=== PATIENT | female | born 1955 | race Caucasian/White ===

== ENCOUNTER 2017-04-21 11:49 | Emergency (ER) | payer OTHER | END 2017-04-21 12:41 | disposition left against medical advice (07) | LOC: NED 11:49 | DX: Z53.21 Procedure and treatment not carried out due to patient leaving prior to being seen by health care provider (principal) | CPT/HCPCS: 99281 ==

== ENCOUNTER → 2017-04-21 | Outpatient (CLI) | payer OTHER ==
[~2017-04-21] MED LIST: ATEN-102 PO; HYDR-2768 PO
[2017-04-21 10:12] LABS: AUTOMATED NEUTROPHIL # 1.8 TH/MM3 (1.8-7.7); BASOPHIL # 0.1 TH/MM3 (0-0.2); BASOPHIL % 1.3 % (0.0-2.0); EOSINOPHIL # 0.2 TH/MM3 (0-0.4); EOSINOPHIL % 4.3 % (0.0-4.0); HEMATOCRIT 38.7 % (35.0-46.0); HEMOGLOBIN 13.6 GM/DL (11.6-15.3); LYMPH % 53.3 % (9.0-44.0); MEAN CELL VOLUME 104.8 FL (80.0-100.0); MEAN CORPUSCULAR HGB CONC 35.3 % (32.0-36.0); MEAN PLATELET VOLUME 6.7 FL (7.0-11.0); MONO % 9.1 % (0.0-8.0); MONOCYTE # 0.5 TH/MM3 (0-0.9); PLATELET COUNT 277 TH/MM3 (150-450); RED BLOOD COUNT 3.69 MIL/MM3 (4.00-5.30); RED CELL DISTRIBUTION WIDTH 14.9 % (11.6-17.2); WHITE BLOOD COUNT 5.5 TH/MM3 (4.0-11.0)
[2017-04-21 10:44] LABS: ALBUMIN 3.5 GM/DL (3.4-5.0); ALKALINE PHOSPHATASE 91 U/L (45-117); ALT (GPT) 25 U/L (10-53); AST (GOT) 54 U/L (15-37); BICARBONATE 27.9 MEQ/L (21.0-32.0); BLOOD UREA NITROGEN 13 MG/DL (7-18); CALCIUM 8.3 MG/DL (8.5-10.1); CHLORIDE 92 MEQ/L (98-107); CREATININE 1.43 MG/DL (0.50-1.00); DIRECT BILIRUBIN ADULT LESS THAN 0.1 MG/DL (0.0-0.2); GLOMERULAR FILTRATION RATE 37 ML/MIN (>89); GLUCOSE,FASTING 125 MG/DL (74-99); SODIUM (NA) 133 MEQ/L (136-145); TOTAL BILIRUBIN ADULT 0.4 MG/DL (0.2-1.0); TOTAL PROTEIN 8.7 GM/DL (6.4-8.2)
[2017-04-21 13:01] LABS: HEPATITIS A AB IGM NEGATIVE (NEGATIVE); HEPATITIS B CORE AB IGM NEGATIVE (NEGATIVE); HEPATITIS B SURFACE ANTIGEN NEGATIVE (NEGATIVE); HEPATITIS C AB IgG REACTIVE (NEGATIVE)
== END ==
LOC: CLAB 09:41
DX: N08 Glomerular disorders in diseases classified elsewhere (principal)
CPT/HCPCS: 36415; 80053; 80074; 82248; 85025

== ENCOUNTER → 2017-04-22 | Outpatient (CLI) | payer OTHER ==
[2017-04-22 10:54] LABS: ALBUMIN 3.6 GM/DL (3.4-5.0); AST (GOT) 46 U/L (15-37); BICARBONATE 29.1 MEQ/L (21.0-32.0); BLOOD UREA NITROGEN 21 MG/DL (7-18); CALCIUM 8.4 MG/DL (8.5-10.1); CHLORIDE 95 MEQ/L (98-107); CREATININE 1.54 MG/DL (0.50-1.00); GLOMERULAR FILTRATION RATE 34 ML/MIN (>89); GLUCOSE,FASTING 114 MG/DL (74-99); SODIUM (NA) 134 MEQ/L (136-145)
[2017-04-22 10:55] LABS: ALT (GPT) 26 U/L (10-53)
[2017-04-22 10:57] LABS: ALKALINE PHOSPHATASE 103 U/L (45-117); TOTAL BILIRUBIN ADULT 0.4 MG/DL (0.2-1.0); TOTAL PROTEIN 8.6 GM/DL (6.4-8.2)
== END ==
LOC: CLAB 10:07
DX: N08 Glomerular disorders in diseases classified elsewhere (principal)
CPT/HCPCS: 36415; 80053

== ENCOUNTER → 2017-05-16 | Outpatient (CLI) | payer OTHER ==
[2017-05-16 11:33] LABS: ALT (GPT) 30 U/L (10-53)
[2017-05-16 11:35] LABS: ALKALINE PHOSPHATASE 88 U/L (45-117); TOTAL PROTEIN 8.1 GM/DL (6.4-8.2)
[2017-05-16 11:37] LABS: ALBUMIN 3.5 GM/DL (3.4-5.0); BICARBONATE 24.9 MEQ/L (21.0-32.0); BLOOD UREA NITROGEN 24 MG/DL (7-18); CALCIUM 9.8 MG/DL (8.5-10.1); CHLORIDE 100 MEQ/L (98-107); CREATININE 1.61 MG/DL (0.50-1.00); GLOMERULAR FILTRATION RATE 33 ML/MIN (>89); GLUCOSE,FASTING 102 MG/DL (74-99); SODIUM (NA) 136 MEQ/L (136-145)
[2017-05-16 11:39] LABS: AST (GOT) 44 U/L (15-37)
== END ==
LOC: CLAB 10:26
DX: E87.6 Hypokalemia (principal); Z20.5 Contact with and (suspected) exposure to viral hepatitis
CPT/HCPCS: 36415; 80053; 87522

== ENCOUNTER → 2017-05-20 | Outpatient (CLI) | payer OTHER ==
--- NOTE | 2017-05-20 10:10 | RADRPT ---
EXAM DATE/TIME: 05/20/2017 09:26 [place] COMPARISON: No previous studies available for comparison. INDICATIONS : Increased lab values. MEDICAL HISTORY : Hypertension. Hypercholesterolemia. SURGICAL HISTORY : None. ENCOUNTER: Initial ACUITY: 1 day PAIN SCORE: 0/10 LOCATION: Abdomen. MEASUREMENTS: LIVER: 16.0 cm length COMMON DUCT: 4 mm RIGHT KIDNEY: 9.0 x 4.6 x 3.9 cm SPLEEN: 8.8 cm length FINDINGS: LIVER: Diffusely increased hepatic echogenicity with borderline hepatomegaly. No evidence for volume loss or focal hepatic mass or intrahepatic ductal dilatation. The portal vein is patent with hepatopedal radha w. COMMON DUCT: No intraluminal mass or stone visualized. GALLBLADDER: Contains no stones, demonstrates no wall thickening or pericholecystic fluid. PANCREAS: The visualized portions are within normal limits. RIGHT KIDNEY: No hydronephrosis, stone or mass. SPLEEN: No focal lesion. CONCLUSION: 1. Diffuse increased hepatic attenuation with borderline hepatomegaly consistent with hepatic steatos is versus medical liver disease. Fabrizio Austin MD on May 20, 2017 at 10:06 Board Certified Radiologist. This report was verified electronically.
== END ==
LOC: HRAD 09:00
DX: R94.5 Abnormal results of liver function studies (principal)
CPT/HCPCS: 76705

== ENCOUNTER → 2017-07-04 | Outpatient (CLI) | DX: E87.6 Hypokalemia (principal); Z20.5 Contact with and (suspected) exposure to viral hepatitis ==

== ENCOUNTER 2017-07-20 09:43 | Emergency (ER) | payer OTHER ==
[~2017-07-20] VITALS: Ht 162.6 cm; Wt 60.0 kg
[2017-07-20 09:45] VITALS: BP 134/65; PULSE 75; RESP 16; TEMP 98.7; O2SAT 99
[2017-07-20] MEDS ORDERED: LOVA10TA PO (10:02)
[2017-07-20] MEDS ORDERED: HYDR25TA5 PO (10:02)
[2017-07-20] MEDS ORDERED: KLOR10TA PO (10:02)
[2017-07-20] MEDS ORDERED: LEVO25TA4 PO (10:02)
[2017-07-20] MEDS ORDERED: ATEN50TA PO (10:02)
[2017-07-20 10:41] VITALS: RESP 16; TEMP 97.8; O2SAT 98
[2017-07-20] MEDS ORDERED: SODIUM CHLORIDE 0.9% FLUSH 10 ML FLUSH IV FLUSH PRN (10:45)
[2017-07-20] MEDS ORDERED: IOHEXOL 350 MG/ML 10 ML VIAL (for RAD DIAG) IVCONTRAST ONE (11:17)
--- NOTE | 2017-07-20 11:32 | RADRPT ---
EXAM DATE: 07/20/2017 11:21 AM EDT AGE/SEX: 61 years / Female INDICATIONS: Pelvic pain with rectal bleeding. CLINICAL DATA: This is the patient's initial encounter. Patient reports that signs and symptoms have been present for 1 day and indicates a pain score of 4/10. MEDICAL/SURGICAL HISTORY: Cardiovascular disease. Hypertension. None. ORAL CONTRAST: No oral contrast ingested. RADIATION DOSE: 4.61 CTDI (mGy) COMPARISON: No prior [place] exams available for comparison. TECHNIQUE: Multiple contiguous axial images were obtained through the abdomen and pelvis following b olus infusion of 94 ml Omnipaque 350 (iohexol) nonionic water-soluble contrast as a single exam dos e. No oral contrast ingested. Using automated exposure control and adjustment of the mA and/or kV ac cording to patient size, the radiation dose was kept as low as reasonably achievable to obtain optima l diagnostic quality images. FINDINGS: Lower Lungs: The visualized lower lungs are clear. Liver: The liver has a homogeneous density without space-occupying lesion. There is no dilation of th e biliary tree. Spleen: Homogeneous density without enlargement. Pancreas: Unremarkable without mass or calcification. Kidneys: Normal in size and shape. No evidence of mass or hydronephrosis. Adrenal Glands: Unremarkable. Aorta: There is scattered atherosclerosis identified throughout the aorta without significant lumin al narrowing until the level of the common artery bifurcation where there is extensive atherosclerosi s and significant luminal narrowing identified throughout the internal and external iliac arteries. N o evidence of aneurysm. Bowel/Mesentery: There is circumferential bowel wall thickening identified within the rectum without evidence of mass or adjacent perimesenteric inflammatory change. The remainder of the colon is lavelle l in appearance without evidence of wall thickening. Small bowel is unremarkable. Abdominal Wall: Intact. Retroperitoneum: No evidence of adenopathy in the retrocrural, para-aortic, or deep pelvic regions. Bladder: Contours are smooth. Reproductive Organs: No abnormal masses or calcifications seen. Inguinal: The inguinal region is unremarkable without evidence of adenopathy. Bony Structures: Severe degenerative disc changes identified throughout the lumbar spine. CONCLUSION: 1. Extensive atherosclerosis identified within the bilateral common internal and external iliac lamar ubaldo with luminal narrowing. No evidence of aneurysm. 2. Circumferential wall thickening identified within the region of the rectum without evidence of ad jacent mesenteric fat stranding adenopathy or focal mass. This may reflect an infectious colitis or p ossible vascular etiology given the extensive atherosclerosis seen within the pelvis. Electronically signed by: Isabel Giordano MD 07/20/2017 11:30 AM EDT
[2017-07-20 11:38] LABS: BASOPHIL # 0.1 TH/MM3 (0-0.2); BASOPHIL % 0.9 % (0.0-2.0); EOSINOPHIL # 0.4 TH/MM3 (0-0.4); EOSINOPHIL % 4.8 % (0.0-4.0); HEMATOCRIT 38.4 % (35.0-46.0); LYMPH % 31.3 % (9.0-44.0); LYMPHOCYTE # 2.3 TH/MM3 (1.0-4.8); MEAN CORPUSCULAR HEMOGLOBIN 35.5 PG (27.0-34.0); MEAN CORPUSCULAR HGB CONC 33.8 % (32.0-36.0); MEAN PLATELET VOLUME 7.9 FL (7.0-11.0); MONO % 10.2 % (0.0-8.0); MONOCYTE # 0.8 TH/MM3 (0-0.9); NEUT % 52.8 % (16.0-70.0); PLATELET COUNT 358 TH/MM3 (150-450); RED BLOOD COUNT 3.65 MIL/MM3 (4.00-5.30); RED CELL DISTRIBUTION WIDTH 14.4 % (11.6-17.2); WHITE BLOOD COUNT 7.5 TH/MM3 (4.0-11.0)
[2017-07-20 11:52] LABS: BILIRUBIN, URINE NEG (NEG); BLOOD, URINE TRACE (NEG); GLUCOSE,URINE NEG (NEG); KETONE, URINE NEG (NEG); NITRITE,URINE NEG (NEG); SQUAMOUS EPITHELIAL CELL URINE 4 /hpf (0-5); URINE COLOR YELLOW (YELLW/STRAW); URINE LEUKOCYTE ESTERASE NEG (NEG)
[2017-07-20 11:56] LABS: PROTHROMBIN TIME - PATIENT 10.6 SEC (9.8-11.6)
[2017-07-20 12:01] LABS: ALBUMIN 3.6 GM/DL (3.4-5.0); ALT (GPT) 28 U/L (10-53); AST (GOT) 42 U/L (15-37); BICARBONATE 26.4 MEQ/L (21.0-32.0); BLOOD UREA NITROGEN 15 MG/DL (7-18); CALCIUM 9.3 MG/DL (8.5-10.1); CHLORIDE 100 MEQ/L (98-107); CREATININE 1.22 MG/DL (0.50-1.00); GLOMERULAR FILTRATION RATE 45 ML/MIN (>89); GLUCOSE,RANDOM 91 MG/DL (74-106); SODIUM (NA) 137 MEQ/L (136-145)
[2017-07-20 12:04] LABS: ALKALINE PHOSPHATASE 95 U/L (45-117); TOTAL BILIRUBIN ADULT 0.5 MG/DL (0.2-1.0); TOTAL PROTEIN 8.5 GM/DL (6.4-8.2)
[2017-07-20] MEDS ORDERED: CIPR-9 PO (12:51)
[2017-07-20] MEDS ORDERED: METR-1 PO (12:51)
--- NOTE | 2017-07-20 12:52 | PD ---
HPI Chief Complaint: GI Complaint Time Seen by Provider: 10:29 Travel History International Travel<30 days: No Contact w/Intl Traveler<30days: No Traveled to known affect area: No History of Present Illness HPI Patient is a 61-year-old female who comes in with left lower quadrant abdominal pain. She says that over the last month she has had episodic rectal bleeding. She says it has stopped now. She does say that she started having left lower quadrant abdominal pain about a week ago. She has not taken anything for the pain. She came in today, mostly because her daughter told her to. She denies nausea or vomiting. She denies fever chills. She denies any dizziness, palpitations, shortness of breath. She did have a colonoscopy 2 months ago and said that they found polyps. She is working with her doctor to be able to go follow-up with gastroenterology regarding this as well as her hepatitis C. Severity is mild to moderate. PFSH Past Medical History Cardiovascular Problems: Yes High Cholesterol: Yes Diminished Hearing: No Hypertension: Yes Medical other: Yes (hep c) Thyroid Disease: Yes Tetanus Vaccination: > 5 Years Influenza Vaccination: No ?: Not Menopausal: Yes : 1 Para: 1 Past Surgical History Surgical History: No Previous Surgery Social History Alcohol Use: Yes Tobacco Use: Yes (1/2 ppd cigarettes) Substance Use: No Allergies-Medications (Allergen,Severity, Reaction): Coded Allergies: No Known Allergies (Verified Adverse Reaction, Unknown, 07/20/17) Reported Meds & Prescriptions Reported Meds & Active Scripts Active Reported Hydrochlorothiazide 25 Mg Tab 25 Mg PO DAILY Lovastatin 10 Mg Tab 10 Mg PO DAILY Klor-Con 10 (Potassium Chloride) 10 Meq Tab 10 Meq PO DAILY Levothyroxine (Levothyroxine Sodium) 25 Mcg Tab 25 Mcg PO DAILY Atenolol 50 Mg Tab 50 Mg PO DAILY Review of Systems Except as stated in HPI: all other systems reviewed are Neg General / Constitutional: No: Fever, Chills HENT: No: Headaches, Lightheadedness Cardiovascular: No: Chest Pain or Discomfort Respiratory: No: Shortness of Breath Gastrointestinal: Positive: Abdominal Pain, No: Nausea, Vomiting Musculoskeletal: No: Myalgias, Edema Skin: No Rash, No Change in Pigmentation Neurologic: No: Weakness, Dizziness Physical Exam Narrative GENERAL: Awake and alert, no acute distress. SKIN: Focused skin assessment warm/dry. HEAD: Atraumatic. Normocephalic. EYES: Pupils equal and round. No scleral icterus. ENT: Mucous membranes pink and moist. NECK: Trachea midline. No JVD. CARDIOVASCULAR: Regular rate and rhythm. No murmur appreciated. RESPIRATORY: No accessory muscle use. Clear to auscultation. Breath sounds equal bilaterally. GASTROINTESTINAL: Abdomen soft, nondistended. Mild tenderness to palpation of the left lower quadrant, no rebound or guarding. MUSCULOSKELETAL: No obvious deformities. No clubbing. No cyanosis. No edema. NEUROLOGICAL: Awake and alert. No obvious cranial nerve deficits. Motor grossly within normal limits. Normal speech. PSYCHIATRIC: Appropriate mood and affect; insight and judgment normal. Data Data Last Documented VS Vital Signs Date Time Temp Pulse Resp B/P (MAP) Pulse Ox O2 Delivery O2 Flow Rate FiO2 07/20/17 10:41 97.8 16 98 Room Air 07/20/17 09:45 75 134/65 (88) Orders Orders Complete Blood Count With Diff (07/20/17 10:39) Comprehensive Metabolic Panel (07/20/17 10:39) Prothrombin Time / Inr (Pt) (07/20/17 10:39) Act Partial Throm Time (Ptt) (07/20/17 10:39) Urinalysis - C+S If Indicated (07/20/17 10:39) Ct Abd/Pel W Iv Contrast(Rout) (07/20/17 10:39) Iv Access Insert/Monitor (07/20/17 10:39) Ecg Monitoring (07/20/17 10:39) Oximetry (07/20/17 10:39) Sodium Chloride 0.9% Flush (Ns Flush) (07/20/17 10:45) Iohexol 350 Inj (Omnipaque 350 Inj) (07/20/17 11:17) Labs Laboratory Tests Test 07/20/17 10:45 07/20/17 11:15 White Blood Count 7.5 TH/MM3 Red Blood Count 3.65 MIL/MM3 Hemoglobin 13.0 GM/DL Hematocrit 38.4 % Mean Corpuscular Volume 105.0 FL Mean Corpuscular Hemoglobin 35.5 PG Mean Corpuscular Hemoglobin Concent 33.8 % Red Cell Distribution Width 14.4 % Platelet Count 358 TH/MM3 Mean Platelet Volume 7.9 FL Neutrophils (%) (Auto) 52.8 % Lymphocytes (%) (Auto) 31.3 % Monocytes (%) (Auto) 10.2 % Eosinophils (%) (Auto) 4.8 % Basophils (%) (Auto) 0.9 % Neutrophils # (Auto) 4.0 TH/MM3 Lymphocytes # (Auto) 2.3 TH/MM3 Monocytes # (Auto) 0.8 TH/MM3 Eosinophils # (Auto) 0.4 TH/MM3 Basophils # (Auto) 0.1 TH/MM3 CBC Comment DIFF FINAL Differential Comment Prothrombin Time 10.6 SEC Prothromb Time International Ratio 1.0 RATIO Activated Partial Thromboplast Time 27.7 SEC Blood Urea Nitrogen 15 MG/DL Creatinine 1.22 MG/DL Random Glucose 91 MG/DL Total Protein 8.5 GM/DL Albumin 3.6 GM/DL Calcium Level 9.3 MG/DL Alkaline Phosphatase 95 U/L Aspartate Amino Transf (AST/SGOT) 42 U/L Alanine Aminotransferase (ALT/SGPT) 28 U/L Total Bilirubin 0.5 MG/DL Sodium Level 137 MEQ/L Potassium Level 3.7 MEQ/L Chloride Level 100 MEQ/L Carbon Dioxide Level 26.4 MEQ/L Anion Gap 11 MEQ/L Estimat Glomerular Filtration Rate 45 ML/MIN Urine Color YELLOW Urine Turbidity CLEAR Urine pH 7.0 Urine Specific [place] 1.039 Urine Protein NEG mg/dL Urine Glucose (UA) NEG mg/dL Urine Ketones NEG mg/dL Urine Occult Blood TRACE Urine Nitrite NEG Urine Bilirubin NEG Urine Urobilinogen LESS THAN 2.0 MG/DL Urine Leukocyte Esterase NEG Urine RBC 4 /hpf Urine WBC LESS THAN 1 /hpf Urine Squamous Epithelial Cells 4 /hpf Microscopic Urinalysis Comment CULT NOT INDICATED MDM Medical Decision Making Medical Screen Exam Complete: Yes Emergency Medical Condition: Yes Medical Record Reviewed: Yes Differential Diagnosis Diverticulitis versus colitis versus GI bleed Narrative Course Patient is a 61-year-old female who comes in committing of left lower quadrant pain and occasional rectal bleeding. She says the bleeding has now stopped. Exam shows mild left lower quadrant tenderness. IV established, labs sent. Labs show hemoglobin of 13, no acute abnormalities. CT abdomen and pelvis performed shows possible colitis. Last 24 hours Impressions Abdomen/Pelvis CT 07/20/17 1039 Signed Impressions: CONCLUSION: 1. Extensive atherosclerosis identified within the bilateral common internal a nd external iliac arteries with luminal narrowing. No evidence of aneurysm. 2. Circumferential wall thickening identified within the region of the rectum without evidence of adjacent mesenteric fat stranding adenopathy or focal mass. This may reflect an infectious colitis or possible vascular etiology given the extensive atherosclerosis seen within the pelvis. Patient will be discharged with prescriptions for Flagyl and Cipro. She is advised to avoid alcohol taking these medications as they will make her violently ill. Advised follow-up with her manager surgical. Advised return to the ED as needed for any worsening symptoms. Diagnosis Primary Impression: Acute colitis Patient Instructions: Colitis (ED), General Instructions Additional Instructions: Take all of the antibiotics. Avoid alcohol while taking the antibiotics as they will make you very sick. Follow-up with gastroenterology as soon as possible. Return to the ED as needed for any worsening symptoms. Scripts Metronidazole (Flagyl) 500 Mg Tab 500 MG PO TID for Infection for 7 Days, TAB 0 Refills Prov: Liliana Suresh MD 07/20/17 Ciprofloxacin (Cipro) 500 Mg Tab 500 MG PO BID for Infection for 7 Days, #14 TAB 0 Refills Prov: Liliana Suresh MD 07/20/17 Disposition: 01 DISCHARGE HOME Condition: Stable Liliana Suresh MD Jul 20, 2017 12:51
[2017-07-20 12:57] VITALS: BP 130/77; TEMP 97.8
== END 2017-07-20 13:00 | disposition home or self-care (01) ==
LOC: NEPE 09:43
DX: K52.9 Noninfective gastroenteritis and colitis, unspecified (principal); E78.00 Pure hypercholesterolemia, unspecified; I10 Essential (primary) hypertension; E07.9 Disorder of thyroid, unspecified; F17.200 Nicotine dependence, unspecified, uncomplicated; Z79.899 Other long term (current) drug therapy; Z86.19 Personal history of other infectious and parasitic diseases
CPT/HCPCS: 74177; 80053; 81001; 85025; 85610; 85730; 99284; Q9967